=== PATIENT | male | born 1975 | race Caucasian/White ===

== ENCOUNTER 2016-11-23 01:47 | Emergency (ER) | payer SELFPAY ==
[~2016-11-23] VITALS: Ht 170.2 cm; Wt 70.0 kg
[2016-11-23] MEDS ORDERED: ACETAMINOPHEN/HYDROcodone 325 MG/5 MG TAB PO SCH (02:20)
[2016-11-23] MEDS ORDERED: TETANUS/DIPHTHERIA TOXOID ADULT 0.5 ML VIAL IM ONE (02:20)
[2016-11-23 04:06] VITALS: RESP 18
[2016-11-23 04:12] VITALS: BP 121/72; PULSE 106; RESP 18; O2SAT 96
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
[2016-11-23] MEDS ORDERED: DICL75TA PO (04:39)
[2016-11-23] MEDS ORDERED: CYCL1TAB29 PO (04:39)
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
[2016-11-23 06:00] VITALS: BP 127/78; PULSE 95; RESP 18; O2SAT 98
[2016-11-23] MEDS ORDERED: ACETAMINOPHEN/HYDROcodone 325 MG/5 MG TAB PO ONE (06:15)
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
== END 2016-11-23 06:40 | disposition home or self-care (01) ==
LOC: NED 01:47 → NEPD 06:40
DX: S01.112A Laceration without foreign body of left eyelid and periocular area, initial encounter (principal); S00.83XA Contusion of other part of head, initial encounter; S00.93XA Contusion of unspecified part of head, initial encounter; S50.02XA Contusion of left elbow, initial encounter; S50.01XA Contusion of right elbow, initial encounter; S50.12XA Contusion of left forearm, initial encounter; S50.11XA Contusion of right forearm, initial encounter; M79.641 Pain in right hand; F17.200 Nicotine dependence, unspecified, uncomplicated; Y04.2XXA Assault by strike against or bumped into by another person, initial encounter; Z23 Encounter for immunization; Z87.19 Personal history of other diseases of the digestive system
CPT/HCPCS: 70450; 70486; 72040; 72100; 73070; 73120; 90471; 90714